=== PATIENT | female | born 1940 | race Caucasian/White ===

== ENCOUNTER → 2017-03-19 | Outpatient (CLI) | payer MEDICARE | END | disposition home or self-care (01) | LOC: CFH 13:37 | PROVIDERS: ATTEND Family Medicine | DX: Z12.31 Encounter for screening mammogram for malignant neoplasm of breast (principal); M85.88 Other specified disorders of bone density and structure, other site; N95.9 Unspecified menopausal and perimenopausal disorder; R09.89 Other specified symptoms and signs involving the circulatory and respiratory systems | CPT/HCPCS: 77080; G0202 ==

== ENCOUNTER → 2017-09-10 | Outpatient (CLI) | payer MEDICARE ==
[~2017-09-10] MED LIST: OMNIPAQUE 350 MG/ML, 100ML BOTTLE ONE
== END | disposition home or self-care (01) ==
LOC: CFH 08:41
PROVIDERS: ATTEND Internal Medicine Gastroenterology
DX: K76.0 Fatty (change of) liver, not elsewhere classified (principal); K66.8 Other specified disorders of peritoneum
CPT/HCPCS: 74177; 82565; Q9967

== ENCOUNTER → 2018-08-17 | Outpatient (CLI) | payer MEDICARE | END | disposition home or self-care (01) | LOC: CFH 08:21 | PROVIDERS: ATTEND Family Medicine | DX: Z12.31 Encounter for screening mammogram for malignant neoplasm of breast (principal); Z13.820 Encounter for screening for osteoporosis; M81.0 Age-related osteoporosis without current pathological fracture | CPT/HCPCS: 77080; 77067 ==

== ENCOUNTER 2019-09-18 12:21 | Outpatient (CLI) | payer MEDICARE ==
[~2019-09-18 12:21] MED LIST changes: +CYCL1DRO EACHEYE; -OMNIPAQUE 350 MG/ML, 100ML BOTTLE ONE
== END 2019-09-18 23:59 | disposition home or self-care (01) ==
LOC: CFH 12:21
PROVIDERS: ATTEND Nurse Practitioner
DX: Z12.31 Encounter for screening mammogram for malignant neoplasm of breast (principal)
CPT/HCPCS: 77067